=== PATIENT | male | born 1970 ===

== ENCOUNTER 2020-12-13 09:14 | Outpatient (REF) | payer OTHER, SELFPAY | END 2020-12-13 09:15 | disposition home or self-care (01) | LOC: HO.LAB 09:14 | PROVIDERS: Visit Provider Internal Medicine | DX: Z20.822 Contact with and (suspected) exposure to COVID-19 (principal) | CPT/HCPCS: 36415; C9803; U0003; U0005 ==

== ENCOUNTER 2021-01-26 08:36 | Outpatient (REF) | payer OTHER, SELFPAY | END 2021-01-26 08:37 | disposition home or self-care (01) | LOC: HO.LAB 08:36 | PROVIDERS: Visit Provider Internal Medicine | DX: Z20.822 Contact with and (suspected) exposure to COVID-19 (principal) | CPT/HCPCS: 36415; C9803; U0003; U0005 ==

== ENCOUNTER 2024-01-17 07:41 | Outpatient (REF) | payer OTHER, SELFPAY ==
[2024-01-17 11:49] LABS: MANUAL DIFF FLAG NO
[2024-01-17 11:59] LABS: Basophils Absolute Auto 0.1 X10*3/uL (0.0-0.2); Basophils Percent Auto 0.6 % (0-2); Eosinophils Absolute Auto 0.5 X10*3/uL (0.0-0.4); Eosinophils Percent Auto 5.5 % (0-4); Hematocrit 48.5 % (42.0-52.0); Hemoglobin 16.5 g/dl (14.0-18.0); Imm Gran Abs Auto 0.01 X10*3/uL (0.00-0.03); Imm Gran Pct Auto 0.1 % (0.0-0.4); Lymphocytes Absolute Auto 2.4 X10*3/uL (1.2-4.9); Lymphocytes Percent Auto 28.4 % (20-40); Mean Corpuscular Hemoglobin 32.4 pg (27.0-33.0); Mean Corpuscular Volume 95.1 fL (80.0-98.0); Mean Platelet Volume 10.6 fL (9.4-12.4); Monocytes Absolute Auto 0.9 X10*3/uL (0.1-1.2); Monocytes Percent Auto 10.9 % (2-11); Neutrophils Absolute Auto 4.5 x10*3/uL (2.0-8.3); Neutrophils Percent Auto 54.5 % (45-73); Platelet Count 285 X10*3/uL (160-400); Red Cell Distribution Width 12.3 % (11.0-16.0); White Blood Count 8.3 X10*3/uL (4.8-10.8)
[2024-01-17 12:42] LABS: Cholesterol 222 mg/dL (<200); HDL Cholesterol 39 mg/dL (>40); LDL Cholesterol Calculated 152 mg/dL (<100); Triglycerides 157 mg/dL (<150)
[2024-01-23 11:53] LABS: Testosterone, Total 322 ng/dL (250-1100)
== END 2024-01-17 07:42 | disposition home or self-care (01) ==
LOC: HO.10HDL 07:41
PROVIDERS: Visit Provider Internal Medicine Medical Oncology
DX: Z12.5 Encounter for screening for malignant neoplasm of prostate (principal); E66.9 Obesity, unspecified; N40.0 Benign prostatic hyperplasia without lower urinary tract symptoms; E55.9 Vitamin D deficiency, unspecified
CPT/HCPCS: 36415; 80061; 84153; 84403; 85025

== ENCOUNTER 2024-02-19 14:13 | Outpatient (AMB) | payer OTHER, SELFPAY ==
--- NOTE | 2024-02-19 14:42 | MHC.OFFVIS ---
Intake Vital Signs 02/19/24 14:44 Height 5 ft 5 in Weight 205 lb BMI 34.1 BP 132/78 Blood Pressure Location Rt brachial Position Sitting Pulse 65 Pulse Source Doppler Pulse Oximetry (%) 98 Oxygen Delivery Method Room Air Intake Visit Reasons: vidal Allergies No Known Allergies [No Known Allergies*] Allergy (Verified 02/19/24 14:48) HPI vidal HPI Details 53-year-old gentleman with underlying history of upper sleep apnea, previously on CPAP therapy, last sleep study in 2016. Patient states that over the last few months he was not able to use his CPAP machine at that his broken down. He is now referred for further evaluation. Patient states that when he was using his CPAP he has been getting good quality sleep. He would like to try using CPAP machine again. [facility] Social History (Updated 02/19/24 @ 14:49 by Marilynn Zaman [facility]) Tobacco use type: Cigar Review of Systems Const Denies daytime sleepiness, Denies excessive sweating, Denies fatigue, Denies fever(s), Denies lethargy, Denies malaise, Denies night sweats, Denies snoring and Denies weight loss Eyes Denies blurry vision and Denies itchy eyes ENT Denies nasal congestion, Denies post nasal drip, Denies sinus pain, Denies sinus pressure and Denies other ( Thrush) Card Denies chest pain, Denies pedal edema, Denies dyspnea, Denies orthopnea and Denies paroxysmal nocturnal dyspnea Resp Denies cough, Denies hemoptysis, Denies excessive phlegm production, Denies dyspnea, Denies snoring and Denies wheezing GI Denies abdominal pain and Denies heartburn Musc Denies myalgias, Denies arthralgias and Denies joint swelling Skin/Breast Denies rash Neuro Denies memory loss and Denies seizure-like activity Psych Denies abnormal sleep pattern, Denies anxiety and Denies memory loss Endo Denies excessive sweating, Denies fatigue and Denies heat intolerance Adonay/Lymph Denies easy bruising Aller/Immun Denies itchy eyes, Denies seasonal rhinorrhea and Denies wheezing Physical Exam Vital Signs: Last Vital Signs Pulse 65 02/19/24 14:44 BP 132/78 02/19/24 14:44 Pulse Ox 98 02/19/24 14:44 Oxygen Delivery Method Room Air 02/19/24 14:44 BMI result Body Mass Index 34.1 Const General: no acute distress and alert Nutritional Appearance: not obese Orientation/consciousness: Other orientation findings ( oriented) HEENT Head: Yes atraumatic Eyes General: appearance normal, both eyes and all related structures Sclerae: sclerae normal EOM: EOMs intact bilaterally Neck Neck: Yes supple Lymphatic: no lymphadenopathy noted Resp Effort & Inspection: normal respiratory effort and no use of accessory muscles Auscultation: clear to auscultation bilaterally Cardio Rate: regular rate Rhythm: regular rhythm Heart sounds: no gallops, no murmurs and no rubs Skin General skin exam: other ( warm) Extrem General: No clubbing, No cyanosis and No edema Assessment & Plan Assessment & Plan (1) VIDAL (obstructive sleep apnea): Code(s): G47.33 - Obstructive sleep apnea (adult) (pediatric) Plan: Underlying obstructive sleep apnea with remote sleep study over 8 years prior. Will request home sleep study. Orders: Orders RT home sleep study Today G47.33 - Obstructive sleep apnea (adult) (pediatric) Coding Level of Care Code New Pt Level 3 (09168) Diagnoses VIDAL (obstructive sleep apnea) G47.33
[2024-02-19 14:44] VITALS: BP 132/78; PULSE 65; O2SAT 98; BMI 34.1
== END 2024-02-19 15:00 | disposition home or self-care (01) ==
PROVIDERS: PCP Internal Medicine Medical Oncology; Visit Provider Internal Medicine Pulmonary Disease
DX: G47.33 Obstructive sleep apnea (adult) (pediatric) (principal)
CPT/HCPCS: 99203

== ENCOUNTER → 2024-02-19 14:13 | Outpatient (BNVA) | payer OTHER, SELFPAY | PROVIDERS: PCP Internal Medicine Medical Oncology; Visit Provider Internal Medicine Pulmonary Disease ==

== ENCOUNTER → 2024-03-24 14:12 | Outpatient (REF) | payer OTHER, SELFPAY | LOC: HO.SL 14:12 | PROVIDERS: PCP Internal Medicine Medical Oncology; Visit Provider Internal Medicine Pulmonary Disease | DX: G47.33 Obstructive sleep apnea (adult) (pediatric) (principal) | CPT/HCPCS: 95806 ==

== ENCOUNTER → 2024-03-24 14:34 | Outpatient (BNV) | payer OTHER, SELFPAY | PROVIDERS: PCP Internal Medicine Medical Oncology; Visit Provider Internal Medicine | DX: G47.33 Obstructive sleep apnea (adult) (pediatric) (principal) | CPT/HCPCS: 95806 ==

== ENCOUNTER 2024-09-18 08:20 | Day surgery (SDC) | payer OTHER, SELFPAY ==
[2024-09-16 13:52] VITALS: BMI 35.4
--- NOTE | 2024-09-17 09:18 | HO.ANESPROP2 ---
Documented by User: Milly Hook NP 09/17/24 09:18 HPI - Anesthesia Eval Consult details Narrative: 54yo M for Colonoscopy [facility] Active Problems Active Problems: All Active Problems NADYA (obstructive sleep apnea) (Acute) Past Medical History Medical History NADYA (obstructive sleep apnea) Surgical History Surgical History No pertinent past surgical history Social History Social History Patient Tobacco Use Status: Current someday Tobacco user Tobacco use type: Cigar Use of substances other than those prescribed or required for medical reasons: No Advance Directives: No Advance Directives Information Provided: Yes Meds Allergies Allergy/AdvReac Type Severity Reaction Status Date / Time No Known Allergies Allergy Verified 09/18/24 09:03 [No Known Allergies*] Home Medications ?Medication ?Instructions ?Recorded ?Confirmed ?Last Taken ?Type No Known Home Meds 09/18/24 09/18/24 Unknown History Exam Height,Weight and Vital Signs: Height 5 ft 5 in Weight 96.615 kg Assessment and Plan Assessment Anesthesia Assessment: Chart Reviewed Documented by User: Timmy Renteria MD 09/18/24 10:30 [facility] Past Medical History Medical History NADYA (obstructive sleep apnea) Family History Family history of problems with anesthesia: No Surgical History Surgical History No pertinent past surgical history History of Problems with Anesthesia: No Social History Social History Patient Tobacco Use Status: Current someday Tobacco user Tobacco use type: Cigar Use of substances other than those prescribed or required for medical reasons: No Advance Directives: No Advance Directives Information Provided: Yes Meds Allergies Allergy/AdvReac Type Severity Reaction Status Date / Time No Known Allergies Allergy Verified 09/18/24 09:03 [No Known Allergies*] Home Medications ?Medication ?Instructions ?Recorded ?Confirmed ?Last Taken ?Type No Known Home Meds 09/18/24 09/18/24 Unknown History Exam Airway Mallampati Class: III TM Dist: >3cm Neck ROM: Full Assessment and Plan Assessment Anesthesia Assessment: Anesthesia Plan Discussed Final Anesthetic Review Family History of Problems with Anesthesia: No History of Problems with Anesthesia: No NPO: Yes ASA Class: III Final Preanesthetic Review: No Changes in Pt Med Stat, Meds/Allgs Chart Reviewed, Consent Obtained/Reviewed and Anes Risks/Benef Reviewed Patient Risk: Intermediate Procedure Risk: Low Anesthetic Plan Anesthetic Plan: TIVA Disposition: Standard PACU
[2024-09-18 09:28] VITALS: BP 133/82; PULSE 56; RESP 16; TEMP 36.8; O2SAT 97
[2024-09-18] MEDS: Lactated Ringers 1,000 ML 100 ML IVCONT (09:43)
--- NOTE | 2024-09-18 11:14 | PM.OP ---
Brief Operative Note Date of Service: 09/18/24 Pre-op diagnosis: Screening Post-op diagnosis: other (Diverticulosis) Procedure: Colonoscopy to the cecum Surgeon: Douglas Maria MD Anesthesia: MAC Was an Mosaic Technician used for this Procedure?: No Estimated blood loss (mL): 0 Pathology: none sent Condition: stable Disposition: PACU
[2024-09-18 11:15] VITALS: BP 101/71; PULSE 75; RESP 18; TEMP 36.2; O2SAT 96
[2024-09-18 11:30] VITALS: BP 126/80; PULSE 58; RESP 18; TEMP 36.1; O2SAT 97
--- NOTE | 2024-09-18 22:43 | OP_ITS ---
DATE OF SERVICE: 09/18/2024 SURGEON: Douglas Maria MD INDICATIONS: The patient presents for evaluation of colorectal cancer screening. Full consent was obtained from him for this, including risks of bleeding and perforation. PREOPERATIVE DIAGNOSIS: Colorectal cancer screening. POSTOPERATIVE DIAGNOSIS: PROCEDURE PERFORMED: Colonoscopy to the cecum. ESTIMATED BLOOD LOSS: COMPLICATIONS: ANESTHESIA: Medication used; monitored anesthesia care. ASSISTANTS: SPECIMENS: POSTOPERATIVE DIAGNOSES: Colorectal cancer screening, occasional diverticulosis, and internal hemorrhoids. DESCRIPTION OF PROCEDURE: The patient was placed in left lateral decubitus position. The digital rectal exam revealed no abnormalities. The Olympus videopediatric colonoscope was entered into the rectum and advanced easily to the cecum. Once in the cecum, I did identify normal-appearing cecal pouch with appendiceal orifice and a normal-appearing ileocecal valve. The entire cecum and ileocecal valve appeared normal. There was transillumination of light deep in the right lower quadrant. The scope was slowly withdrawn assessing all mucosal surfaces carefully. Preparation was excellent. I did not visualize any sign of polyps, colitis, nor angiodysplasia. There were occasional diverticula in the sigmoid colon. In the rectum, scope was retroflexed visualizing small internal hemorrhoids, but no other pathology. The rectal mucosa appeared normal. Scope was straightened and withdrawn from the patient. He tolerated the procedure well and was returned to recovery area in stable condition. IMPRESSION: 1. Occasional sigmoid diverticulosis. 2. Small internal hemorrhoids. PLAN: Given the negative exam and negative family history of colon cancer, I would recommend a followup coloscopy in 10 years for further screening. He will otherwise see me on a p.r.n. basis. Douglas Maria MD RMW/[place] / [phone]
== END 2024-09-18 11:46 | disposition home or self-care (01) ==
PROVIDERS: PCP Internal Medicine Medical Oncology; Visit Provider Internal Medicine
PROC: 0DJD8ZZ Inspection of Lower Intestinal Tract, Via Natural or Artificial Opening Endoscopic (ICD-10-PCS; CPT 45378; principal; 2024-09-18 09:40)
DX: Z12.11 Encounter for screening for malignant neoplasm of colon (principal); K57.30 Diverticulosis of large intestine without perforation or abscess without bleeding; K64.8 Other hemorrhoids; Z87.891 Personal history of nicotine dependence
CPT/HCPCS: 45378; J2003; J2704

== ENCOUNTER 2025-01-05 06:09 | Outpatient (REF) | payer OTHER, SELFPAY ==
--- OUTSIDE RECORDS SUMMARY | 2025-01-05 06:13 | XMS_ITS ---
Author Organization [facility] Address [address] [place] [address] Care Team Providers Care Information Coordinator Name Role Phone Douglas Bermudez MD Primary Care Provider UnavailDouglas Johnson Unavailable [phone] ALLERGIES No Known Allergies REASON FOR VISIT Patient presents today for a colon screening MEDICATIONS Medication SIG (Take, Route, Frequency, Duration) Notes Start Date End Date Status Vitamin B 12 Active SOCIAL HISTORY Tobacco Use: Social History Observation Description Date Details (start date - stop date) Former Smoker NA - NA Sex Assigned At : Social History Observation Description Sex Assigned At Unknown Tobacco Use/Smoking Question Answer Notes Patient is a former smoker How long has it been since you last smoked? > 10 years Alcohol Screen Question Answer Notes Did you have a drink contain ing alcohol in the past year? Yes How often did you have a dri nk containing alcohol in the past year? Monthly or less (1 point) How many drinks did you have on a typical day when you were drinking in the past year? 1 or 2 drinks (0 point) How often did you have 6 or more drinks on one occasion in the past year? Never (0 point) Points 1 Interpretation Negative PROBLEMS Problem Type ICD Code Onset Dates Problem Status W/U Status Risk SNOMED Code Notes Problem Colon cancer screening (Z12.11) Active confirmed Colon cancer screening (401890128) Problem Encounter for other preprocedural examination (Z01.818) Active confirmed Pre-procedure evaluation check (518159709) VITAL SIGNS Blood pressure systolic 00 mm Hg 05/19/20 24 Blood pressure diastolic 00 mm Hg 024 Height 5 ft 5 in in 05/19/2024 Weight 213 lbs 05/19/2024 BMI 35.44 kg/m2 05/19/2024 Encounters Encounter Location Date Provider Diagnosis [facility] [address] [place] [address] 05/19/2024 Douglas Maria Colon cancer screeni ng Z12.11 and Encounter for other preprocedural examination Z01.818 ASSESSMENTS Encounter Date Diagnosis Assessment Notes Treatment Notes Treatment Clinical Notes 05/19/2024 Colon cancer screening (ICD-10 - Z12.11) 05/19/2024 Encounter for other preprocedural examination (ICD-10 - Z01.818) PLAN OF TREATMENT Future Test Test Name Order Date COLONOSCOPY 05/19/2024 Next Appt Details Follow Up: prn, Reason: Progress Notes * Examination Category Sub-Category Detail Notes General Examination GENERAL APPEARANCE: pleasant , well nourished, well developed, in no acute distress HEAD: EYES: sclera non-icteric EARS: NOSE: THROAT: NECK/THYROID: no cervical lymphade nopathy, neck supple HEART: S1, S2 normal CHEST: LUNGS: clear to auscultatio n bilaterally ABDOMEN: normal bowel sounds, no guarding or rigidity, no guarding or rigidity, no masses palpable, soft, nontender, nondistended NEUROLOGIC: alert and oriented SKIN: nonjaundiced, no spi any angiomata EXTREMITIES: no edema PERIPHERAL PULSES: BACK: BREASTS: MUSCULOSKELETAL: MALE GENITOURINARY: LYMPH NODES: RECTAL EXAM: FEMALE GENITOURINARY: ORAL CAVITY: mucosa moist
--- OUTSIDE RECORDS SUMMARY | 2025-01-05 06:14 | XMS_ITS ---
Author Organization [facility] Address [address] [place] [address] Care Team Providers Care Sheet Heater Helper Name Role Phone Douglas Bermudez MD Primary Care Provider Unavailab Douglas Robert Unavailable [phone] REASON FOR VISIT screening PROBLEMS Problem Type ICD Code Onset Dates Problem Status W/U Status Risk SNOMED Code Notes Problem Diverticulosis of large intestine without perforation or abscess without bleeding (K57.30) Active confirmed Diverticul ar disease of colon (260399744) Encounters Encounter Location Date Provider Diagnosis [facility] [place] [facility] [address] [place], [place] [id number] 09/18/2024 Douglas Maria Colon cancer scree srinivas Z12.11 ; Diverticulosis of large intestine without perforation or abscess without bleeding K57.30 and Other hemorrhoids K64.8 ASSESSMENTS Encounter Date Diagnosis Assessment Notes Treatment Notes Treatment Clinical Notes 09/18/2024 Colon cancer screening (ICD-10 - Z12.11) 09/18/2024 Diverticulosis of large intestine without perforation or abscess without bleeding (ICD-10 - K57.30) 09/18/2024 Other hemorrhoids (ICD-10 - K64.8) PLAN OF TREATMENT No Information
--- OUTSIDE RECORDS SUMMARY | 2025-01-05 06:14 | XMS_ITS | Patient Health Record ---
Author Organization Dogulas Bermudez III, MD Address [address] [place] [address] Care Team Providers Care Supervisor Name Role Phone Douglas Bermudez Primary Care Provider [phone] Allergies Allergen (clinical drug ingredient) Drug/Non Drug Allergy documented on EMR Reaction Allergy Type Onset Date Status No Known Drug Allergy Unknown Drug Allergy Active Results Component Value Reference Range Notes Lipid Panel Reviewed date:01/29/2024 03:39:08 PM Interpretation: Performing Lab:[facility], [address] [place] [phone] Notes/Report: Triglycerides 157 <150 mg/dL Desirable Triglyceride: less than 150 mg/dL Borderline High Triglyceride 150-199 mg/dL High Triglyceride: 200-499 mg/dL Very High Triglyceride: greater than or equal to 5OO mg/dL Cholesterol 222 <200 mg/dL Desirable Cholesterol: less than 200 mg/dL Borderline High Cholesterol: 200-239 mg/dL High Cholesterol: greater than 239 mg/dL LDL Cholesterol Calculated 152 <100 mg/dL Desirable LDL: less than 100 mg/dL Near Optimal/Above Optimal LDL: 110-129 mg/dL Borderline High LDL: 130-159 mg/dL High LDL: 160-189 mg/dL Very High LDL: greater than or equal to 190 mg/dL HDL Cholesterol 39 >40 mg/dL Desirable HDL: greater than 40 mg/dL Note: This HDL assay may give artificially low results in patients with liver disease. Testosterone, Total Reviewed date:01/29/2024 03:39:08 PM Interpretation: Performing Lab:[facility], [address] [place] [phone] Notes/Report: Testosterone, Total 965 215-6301 ng/dL For additional information, please refer to http://education.[employer].Appticles/faq/ [email or web address] (This link is being provided for informational/ educational purposes only.) This test was developed and its analytical performance characteristics have been determined by [employer] [place], [place]. It has not been cleared or approved by the U.S. Food and Drug Administration. This assay has been validated pursuant to the CLIA regulations and is used for clinical purposes. THIS TEST WAS PERFORMED AT: [employer]/[address] MOHIT FRANKLIN MD,PHD Complete Blood Count Auto Di ff Reviewed date:01/29/2024 03:39:08 PM Interpretation: Performing Lab:[facility], [address] [place] [phone] Notes/Report: White Blood Count 8.3 4.8-10.8 X10*3/uL Red Blood Count 5.10 4.60-5.80 X10*6/uL Hemoglobin 16.5 14.0-18.0 g/dl Hematocrit 48.5 42.0-52.0 % Mean Corpuscular Volume 95.1 80.0-98.0 fL Mean Corpuscular Hemoglobin 32.4 27.0-33.0 pg Mean Corpuscular HGB Conc 34.0 31.0-36.0 g/dl Red Cell Distribution Width 12.3 11.0-16.0 % Platelet Count 285 160-400 X10*3/uL Mean Platelet Volume 10.6 9.4-12.4 fL Neutrophils Percent Auto 54.5 45-73 % Imm Gran Pct Auto 0.1 0.0-0.4 % Lymphocytes Percent Auto 28.4 20-40 % Monocytes Percent Auto 10.9 2-11 % Eosinophils Percent Auto 5.5 0-4 % Basophils Percent Auto 0.6 0-2 % NRBC Pct Auto 0.0 0.0-0.2 /100WBC Neutrophils Absolute Auto 4.5 2.0-8.3 x10*3/u L Imm Gran Abs Auto 0.01 0.00-0.03 X10*3/uL Lymphocytes Absolute Auto 2.4 1.2-4.9 X10*3/u L Monocytes Absolute Auto 0.9 0.1-1.2 X10*3/uL Eosinophils Absolute Auto 0.5 0.0-0.4 X10*3/u L Basophils Absolute Auto 0.1 0.0-0.2 X10*3/uL NRBC Abs Auto 0.000 0.0-0.012 X10*3/uL Prostate Specific Antigen Reviewed date:01/29/2024 03:39:08 PM Interpretation: Performing Lab:[facility], [address] [place] [phone] Notes/Report: Prostate Specific Antigen 1.90 <0.05-4.0 ng/mL PSA methodology: Mims Alinity i Chemiluminescent Microparticle Immunoassay (CMIA) Reason For Referral Reason Consult and Treat Screen for colon cancer Diagnosis 1 Screen for colon can cer (Z12.11) Referral Organization Douglas Bermudez III, MD Referring Provider First Name Douglas Referring Provider Last Name Lara Referring Provider Speciality Internal edicine Referred Provider Douglas Maria Referred Provider Specialty Gastroentero logy General Notes Ellen Kumar 2023 10:57:15 AM EDT > Faxed referral and progress notesStacy Amber 05/20/2024 01:51:42 PM EDT > Patient is having colonoscopy on 09/18 @ 8:40am Referral Priority Routine Referral Appointment Date 05/19/2024 Reason Consult and Treat Diagnosis 1 Sleep apnea (G47.30) Referral Organization Douglas Bermudez III, MD Referring Provider First Name Douglas Referring Provider Last Name Lara Referring Provider Speciality Internal edicine Referred Provider Jennifer Michele Referred Provider Specialty Sleep Medici ne General Notes Ellen Kumar 2023 10:57:46 AM EDT > Faxed with progress note and referralStacy Amber 01/28/2024 02:02:18 PM > Spoke with Frank from front desk host she stated she is going to work on patients referral and will be calling him to schedule appointment., Ellen Kumar 03/10/2024 04:31:28 PM EDT > Patient was seen by Dr. Koo will not need to go to Dr. Michele. Referral Priority Routine Reason sleep apnea evaluate and treat needs new CPAP machine Diagnosis 1 Sleep apnea (G47.30) Referral Organization Douglas Bermudez III, MD Referring Provider First Name Douglas Referring Provider Last Name Lara Referring Provider Speciality Internal M edicine Referred Provider MANDY KOO Referred Provider Specialty Pulmonary Di seases General Notes Samara Singhe [facility] 01/10 03:57:42 PM EDT > Patient unable to get appt with Dr Michele until June . patient needs to be seen within a month if possible. Thanks , Haydee Singh [facility] 01/30/2024 09:31:17 AM EDT > ref/demo/progress note faxed to Dr Landon office pt aware of this and they will contact pt with appt amado , FranciscoHaydee [facility] 02/18/2024 01:31:51 PM EDT > Called Dr Landon office pt has appt with Dr Ramirez on 02/19/2024 2:45pm Referral Priority Routine Referral Appointment Date 02/19/2024 Social History Tobacco Use: Social History Observation Description Date Details (start date - stop date) Former Smoker NA - NA Sex Assigned At : Social History Observation Description Sex Assigned At Male Tobacco Use/Smoking Question Answer Notes Patient is a former smoker How long has it been since you last smoked? > 10 years Additional Findings: Tobacco Non-User Ex-cigaret te smoker Alcohol Screen Question Answer Notes Did you have a drink contain ing alcohol in the past year? Yes How often did you have a dri nk containing alcohol in the past year? 2 to 3 times a week (3 points) How many drinks did you have on a typical day when you were drinking in the past year? 1 or 2 drinks (0 point) How often did you have 6 or more drinks on one occasion in the past year? Never (0 point) Points 3 Interpretation Negative Problems Problem Type SNOMED Code ICD Code Onset Dates Problem Status W/U Status Risk Notes Problem 1487562 Former smoker (Z87.891) Active confirmed He is highly motivated not to smooke. He has a plan in place to prevent relapse. Problem Obesity (131834403) Obesity (E66.9) Active confirmed His weight is stable at 217 with a body mass index of 36. We discussed his weight loss strategy and diet and nutrition. We discussed alternatives for treatment of obesity. We made a plan to lose weight at a rate of one half of a pound per week through a diet restricted in fat calories and sodium combined with regular physical activity. Problem Benign prostatic hypertrophy without outflow obstruction (799225078) BPH (benign prostatic hypertrophy) (N40.0) Active confirmed He rises from sleep on the average once a night. We have discussed lifestyle modifications he could make to reduce this nocturia. Problem Erectile dysfunction (467385680) Erectile dysfunction (N52.9) Active confirmed This is an intermittent problem and he did not wish medication at this time. We discussed the use of medication. He is going to contact the office he wishes a prescription. Problem Sleep apnea (35793578) Sleep apnea (G47.30) Active confirmed He says he has a new CPAP machine and is using it. Vital Signs Heart Rate 68 /min 09/11/2024 Temperature 98.0 degrees Fahrenheit 09/11/2024 Blood pressure diastolic 80 mm Hg 09/11/2024 Height 65 in 09/11/2024 Blood pressure systolic 139 mm Hg 09/11/2024 Weight 217 lbs 09/11/2024 BMI 36.11 kg/m2 09/11/2024 Encounters Encounter Location Date Provider Diagnosis Douglas Bermudez III, MD [address] [place] [address] [place] [phone] 01/15/2024 Douglas Bermudez Sleep apnea G47.30 ; Obesity E66.9 ; Erectile dysfunction N52.9 and BPH (benign prostatic hypertrophy) N40.0 Douglas Bermudez III, MD [address] [place] [address] [place] [id number] 05/01/2024 Douglas Bermudez Sleep apnea G47.30 ; Obesity E66.9 ; Erectile dysfunction N52.9 ; BPH (benign prostatic hypertrophy) N40.0 and Former smoker Z87.891 Douglas Bermudez III, MD [address] [place] [address] [place] [phone] 09/11/2024 Douglas Bermudez Obesity E66.9 ; Slee p apnea G47.30 ; BPH (benign prostatic hypertrophy) N40.0 ; Erectile dysfunction N52.9 and Former smoker Z87.891 Douglas Bermudez III, MD [address] [place] [address] [place] [phone] 01/29/2024 Douglas Bermudez Obesity E66.9 ; BPH (benign prostatic hypertrophy) N40.0 ; Erectile dysfunction N52.9 and Sleep apnea G47.30 Douglas Bermudez III, MD [address] [place] [address] [place] [address] 06/12/2024 Douglas Bermudez Sleep apnea G47.30 ; Obesity E66.9 ; BPH (benign prostatic hypertrophy) N40.0 ; Former smoker Z87.891 and Erectile dysfunction N52.9 Douglas Bermudez III, MD [address] [place] [address] [place] [address] 01/06/2024 Douglas Bermudez III, MD [address] [place] [address] [place] [address] 01/09/2024 Douglas Bermudez III, MD [address] [place] [address] [place] [address] 02/07/2024 Douglas Bermudez III, MD [address] [place] [address] [place] [address] 05/11/2024 Douglas Bermudez III, MD [address] [place] [address] [place] [address] 12/31/2024 Douglas Bermudez Assessments Encounter Date Diagnosis (ICD Code) Assessment Notes Treatment Notes Treatment Clinical Notes 01/15/2024 Obesity (ICD-10 - E66.9) We have discussed his diet and nutrition. We are reviewed the health consequences of obesity. We have investigated any barriers. We made a suggestion that he lose weight at a rate of 1/2 pound per week for regular physical activity and a diet restricted in fat calories and sodium. 01/15/2024 Sleep apnea (ICD-10 - G47.30) He will continue to use his CPAP. He will determine the setting and reported to us. He will report any daytime somnolence. 05/01/2024 Obesity (ICD-10 - E66.9) We have discussed his diet and nutrition. We are reviewed the health consequences of obesity. We have investigated any barriers. We made a suggestion that he lose weight at a rate of 1/2 pound per week for regular physical activity and a diet restricted in fat calories and sodium. 05/01/2024 Sleep apnea (ICD-10 - G47.30) My office will look into thiis and see if we can help him obtain a functioning CPAP machine. 09/11/2024 Obesity (ICD-10 - E66.9) His weight is stable at 217 with a body mass index of 36. We discussed his weight loss strategy and diet and nutrition. We discussed alternatives for treatment of obesity. We made a plan to lose weight at a rate of one half of a pound per week through a diet restricted in fat calories and sodium combined with regular physical activity. 09/11/2024 Sleep apnea (ICD-10 - G47.30) He says he has a new CPAP machine and is using it. 01/29/2024 Obesity (ICD-10 - E66.9) We have discussed his diet and nutrition. We are reviewed the health consequences of obesity. We have investigated any barriers. We made a suggestion that he lose weight at a rate of 1/2 pound per week for regular physical activity and a diet restricted in fat calories and sodium. 01/29/2024 BPH (benign prostatic hypertrophy) (ICD-10 - N40.0) He rises from sleep once or twice a night to urinate. We have discussed lifestyle modification as a way to reduce nocturia. If necessary he will be seen by urology. 06/12/2024 Obesity (ICD-10 - E66.9) We have discussed his diet and nutrition. We are reviewed the health consequences of obesity. We have investigated any barriers. We made a suggestion that he lose weight at a rate of 1/2 pound per week for regular physical activity and a diet restricted in fat calories and sodium. 06/12/2024 Sleep apnea (ICD-10 - G47.30) He says he has a new CPAP machine and is using it. 01/15/2024 Erectile dysfunction (ICD-10 - N52.9) He was given a course of medication for this problem with a follow-up visit. 05/01/2024 Erectile dysfunction (ICD-10 - N52.9) He was given a course of medication for this problem with a follow-up visit. 09/11/2024 BPH (benign prostatic hypertrophy) (ICD-10 - N40.0) He rises from sleep on the average once a night. We have discussed lifestyle modifications he could make to reduce this nocturia. 01/29/2024 Erectile dysfunction (ICD-10 - N52.9) He was given a course of medication for this problem with a follow-up visit. 06/12/2024 BPH (benign prostatic hypertrophy) (ICD-10 - N40.0) He rises from sleep once or twice a night to urinate. We have discussed lifestyle modification as a way to reduce nocturia. If necessary he will be seen by urology. 01/15/2024 BPH (benign prostatic hypertrophy) (ICD-10 - N40.0) He rises from sleep once or twice a night to urinate. We have discussed lifestyle modification as a way to reduce nocturia. If necessary he will be seen by urology. 05/01/2024 BPH (benign prostatic hypertrophy) (ICD-10 - N40.0) He rises from sleep once or twice a night to urinate. We have discussed lifestyle modification as a way to reduce nocturia. If necessary he will be seen by urology. 09/11/2024 Erectile dysfunction (ICD-10 - N52.9) This is an intermittent problem and he did not wish medication at this time. We discussed the use of medication. He is going to contact the office he wishes a prescription. 01/29/2024 Sleep apnea (ICD-10 - G47.30) He will continue to use his CPAP. He will determine the setting and reported to us. He will report any daytime somnolence. 06/12/2024 Former smoker (ICD-10 - Z87.891) He is highly motivated not to smooke. He has a plan in place to prevent relapse. 05/01/2024 Former smoker (ICD-10 - Z87.891) He is highly motivated not to smooke. He has a plan in place to prevent relapse. 09/11/2024 Former smoker (ICD-10 - Z87.891) He is highly motivated not to smooke. He has a plan in place to prevent relapse. 06/12/2024 Erectile dysfunction (ICD-10 - N52.9) He was given a course of medication for this problem with a follow-up visit. Plan Of Treatment Pending Test Test Name Order Date PROFILE, FASTING (COMPREHENSIVE METABOLI C) 01/15/2024 PROFILE, FASTING (COMPREHENSIVE METABOLI C) 09/11/2024 PSA, TOTAL 01/15/2024 CBC WITH AUTO DIFF 09/11/2024 CBC WITH AUTO DIFF 01/15/2024 Lipid Panel 09/11/2024 Testosterone, Total 09/11/2024 Next Appt Details Provider Name:Douglas Bermudez, 01/15/2025 04:00:00 PM, [address] [place] [address] [address], [address], [place], [address], Insurance Providers Payer Name Payer Address Payer Phone Subscriber Number Group Number Insured Name Patient Relationship to Insured Coverage Start Date Coverage End Date [facility] [address] [facility] [address] [facility] [place] [phone] [id number] Yogesh Bosch Self - patient is the insured Medical (General) History Medical History History ICD Code Sleep apnea, unspecified G47.30 Obesity Former smoker Surgical History Surgery Date(Month/Year) No history Hospitalization History Reason Date(Month/Year) No history
--- OUTSIDE RECORDS SUMMARY | 2025-01-05 06:14 | XMS_ITS ---
Author Organization Douglas Bermudez III, MD Address [address] [place] [address] [place] [address] Care Team Providers Care Child And Adolescent Therapist Name Role Phone Douglas Bermudez Primary Care Provider [phone] REASON FOR VISIT Getting blood work done Social History Sex Assigned At : Social History Observation Description Sex Assigned At Male Encounters Encounter Location Date Provider Diagnosis Douglas Bermudez III, MD [address] [place] [address] [place] [address] 12/31/2024 Douglas Bermudez Plan Of Treatment Next Appt Details Provider Name:Douglas Bermudez, 01/15/2025 04:00:00 PM, [address] [place] [address] [place], [address], Progress Notes * Yogesh ENCINAS ADOB:1970 (54 yo M)Acc No.[id number]:12/31/2024 Patient:?Yogesh ENCINAS :1970???Age:54 Y???Sex:Male Address:[address] [place] [address], [id number] * true * Date:? Generated for Chuck medina/Bri/eTransmitting on:?01/05/2025 06:14 AM EST
--- OUTSIDE RECORDS SUMMARY | 2025-01-05 06:14 | XMS_ITS ---
Author Organization Douglas Bermudez III, MD Address [address] [place] [address] [place] [address] Care Team Providers Care Plastic Surgery Assistant Name Role Phone Douglas Bermudez Primary Care Provider REASON FOR VISIT Folllow Up Social History Sex Assigned At : Social History Observation Description Sex Assigned At Male Encounters Encounter Location Date Provider Diagnosis Douglas Bermudez III, MD [address] [place] [address] [place] [address] 08/14/2024 Douglas Bermudez Plan Of Treatment Next Appt Details Provider Name:Douglas Bermudez, 01/15/2025 04:00:00 PM, [address] [place] [address] [place], [address], Progress Notes * Yogesh ENCINAS ADOB:1970 (54 yo M)Acc No.[id number]:08/14/2024 Progress Notes Patient:?Yogesh ENCINAS Provider:?Douglas Bermudez MD :1970???Age:54 Y???Sex:Male Kehinde e:08/14/2024 Address:[address] [place], [place] [id number] Subjective: * Chief Complaints: * ???1. Folllow Up. * Medical History:? Objective: * Vitals:? Assessment: Plan: * Treatment: * Images: * The named appointment provid er may or may not be the originator of this progress note, and it is not deemed complete until electronically signed by the appointment provider. Sign off status: Pending * Provider:?Douglas Bermudez MD Date:?02/2024 Generated for Chuck medina/Bri/Khurram on:?01/05/2025 06:13 AM EST
--- OUTSIDE RECORDS SUMMARY | 2025-01-05 06:14 | XMS_ITS ---
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 Name Role Phone Douglas Bermudez Primary Care Provider Allergies Allergen (clinical drug ingredient) Drug/Non Drug Allergy documented on EMR Reaction Allergy Type Onset Date Status No Known Drug Allergy Unknown Drug Allergy Active REASON FOR VISIT Sleep apnea, Obesity, Benign prostatic hypertrophy Social History Tobacco Use: Social History Observation Description Date Details (start date - stop date) Former Smoker NA - NA Sex Assigned At : Social History Observation Description Sex Assigned At Male Tobacco Use/Smoking Question Answer Notes Patient is a former smoker How long has it been since you last smoked? > 10 years Additional Findings: Tobacco Non-User Ex-cigaret te smoker Vital Signs Temperature 98.0 degrees Fahrenheit 09/11/20 24 Blood pressure systolic 139 mm Hg 09/11/20 24 Blood pressure diastolic 80 mm Hg 024 Heart Rate 68 /min 09/11/2024 Height 65 in 09/11/2024 Weight 217 lbs 09/11/2024 BMI 36.11 kg/m2 09/11/2024 Encounters Encounter Location Date Provider Diagnosis Douglas Bermudez III, MD [address] [place] [address] [place] [id number] 09/11/2024 Douglas Bermudez Obesity E66.9 ; Slee p apnea G47.30 ; BPH (benign prostatic hypertrophy) N40.0 ; Erectile dysfunction N52.9 and Former smoker Z87.891 Assessments Encounter Date Diagnosis (ICD Code) Assessment Notes Treatment Notes Treatment Clinical Notes 09/11/2024 Obesity (ICD-10 - E66.9) His weight [...] new CPAP machine and is using it. 09/11/2024 BPH (benign prostatic hypertrophy) (ICD-10 - N40.0) He rises from sleep on the average once a night. We have discussed lifestyle modifications he could make to reduce this nocturia. 09/11/2024 Erectile dysfunction (ICD-10 - N52.9) This is an intermittent problem and he did not wish medication at this time. We discussed the use of medication. He is going to contact the office he wishes a prescription. 09/11/2024 Former smoker (ICD-10 - Z87.891) He is highly motivated not to smooke. He has a plan in place to prevent relapse. Plan Of Treatment Pending Test Test Name Order Date PROFILE, FASTING (COMPREHENSIVE METABOLI C) 09/11/2024 CBC WITH AUTO DIFF 09/11/2024 Lipid Panel 09/11/2024 Testosterone, Total 09/11/2024 Next Appt Details Follow Up: As Scheduled, Lilian , Reason: OV, Annual Exam, Routine check-up and blood work Provider Name:Douglas Bermudez, 01/15/2025 04:00:00 PM, [address] [place] [address] , [place] [address], [place], [id number], Progress Notes * ENCINASMarcel Renaeon ADOB:1970 (54 yo M)Acc No.[id number]:09/11/2024 Progress Notes Patient:?Yogesh ENCINAS A Provider:?Douglas Bermudez MD :1970???Age:54 Y???Sex:Male Kehinde e:09/11/2024 Address:[address] [place] [address] , [id number] Subjective: * Chief Complaints: * ???Sleep apneaObesityBenign prostatic hypertrophy * HPI: ???COVID-19 Screening:?Questions?Have you experienced fever, chills, cough, sore throat, shortness of breath, difficulty breathing, muscle aches, loss of taste or smell??No ?Have you been exposed to the virus within the last 10 days??No ?Have you travelled internationally in the last 10 days??No ?Have you been exposed to COVID-19 in the past??Yes ???:? The patient, a 54-year-old male, came in for a routine check-up. He has been generally healthy and has not had any recent blood tests. The patient mentioned that he has been feeling tired lately, which he attributes to aging. He also expressed concerns about changes in his sexual health, specifically not waking up with an erection as he used to. The patient is scheduled for a colonoscopy next Saturday. He has been referred to a specialist for this procedure. The patient also mentioned a recent bug bite. * ROS:?General/Constitutional:?pain?only normal aches and pains.?Chills?denies.?Fatigue?admits.?Fever?denies.?ENT:?Decreased hearing?denies.?Respiratory:?Cough?denies.?Cardiovascular:?Chest pain with exertion?denies.?Dyspnea on exertion?denies.?Shortness of breath?denies.?Gastrointestinal:?Constipation?occasional.?Decreased appetite?denies.?Diarrhea?denies.?Heartburn?denies.?Nausea?denies.?Rectal bleeding?denies.?Vomiting?denies.?Hematology:?bruising?denies.?petechiae?denies.?Swollen glands?none have been noted.?Genitourinary:?Frequent urination?once a night.?Musculoskeletal:?Muscle aches?denies.?Painful joints?denies.?Sciatica?denies.?Weakness?denies.?Skin:?Itching?denies.?Rash?denies.?Skin lesion(s)?denies.?Neurologic:?Difficulty speaking?denies.?Dizziness?denies.?Headache?denies.?Low back pain?denies.?Psychiatric:?Depressed mood?denies.? * Medical History:? * Surgical History:?No history * Hospitalization/Major Diagno stic Procedure:?No history * Family History:?Father: dece ased 51 yrs.?Mother: alive 68 yrs.?Children: alive.?Son(s): alive.?Daughter(s): alive.?Siblings: alive.?Paternal Grand Father: .?Paternal Grand Mother: .?Maternal Grand Father: .?Maternal Grand Mother: alive, kidney failure.?2 brother(s) , 2 sister(s) . 1 son(s) , 1 daughter(s) - healthy. .? His mother is alive and well with arthritis. She has had a knee replacement. His father at the age of 51 in a bicycle accident.He has 4 children from different families. He has 1 grandchild. There is no family history of cancer syndromes. There is no family history of mental illness and addiction or substance use disorder. * Social History:?Tobacco Use:?Tobacco Use/Smoking?Patient is a?former smoker ?How long has it been since you last smoked??> 10 years ?Additional Findings: Tobacco Non-User?Ex-cigarette smoker ???He is a former smoker. He lives in [facility]. He is with 4 children. 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 He has no jainism objection to blood transfusion. * Medications:?None * Allergies:?No Known Drug All ergyno[Allergies Verified] Objective: * Vitals:?Ht: 65, Wt: 217, BMI :36.11, BP: 139/80, HR: 68, Temp: 98.0, Ht-cm: 165.1, Wt-k.43. * Examination: ???General Examination: ?GENERAL APPEARANCE:?pleasant, well nourished, well developed, in no acute distress, calm and relaxed, obese, man.?HEAD:?atraumatic, normocephalic.?EYES:?eomi, perrla, anicteric, conjugate.?EARS:?normal.?NOSE:?septum intact.?ORAL CAVITY:?normal, unremarkable.?NECK/THYROID:?no jugular venous distention, no carotid bruit, thyroid normal.?LYMPH NODES:?no enlarged lymph nodes,spleen normal.?SKIN:?no suspicious lesions, anicteric.?HEART:?no clicks, gallops, murmurs, or rubs, regular rhythm, S1, S2 normal, no s3, or vascular bruits.?LUNGS:?clear to auscultation .?BREASTS:??no masses palpable bilaterally.?ABDOMEN:?bowel sounds normal, no ascites, no organomegaly, no mass, centripital obesity.?RECTAL EXAM:?not examined.?MUSCULOSKELETAL:?extremities unremarkable, no clubbing, cyanosis or edema.?PERIPHERAL PULSES:?normal.?NEUROLOGIC:?alert and oriented, cranial nerves 2-12 grossly intact, deep tendon reflexes 2+ symmetrical, motor strength normal upper and lower extremities, sensory exam intact.?PSYCH:?alert, oriented.? Assessment: * Assessment: 1.?Sleep apnea - G47.30 (Marnie andino)???Notes :He says he has a new CPAP machine and is using it.???2.?Obesity - E66.9???Notes :His weight is stable at 217 with a body mass index of 36.? We discussed his weight loss strategy and diet and nutrition.? We discussed alternatives for treatment of obesity.? We made a plan to lose weight at a rate of one half of a pound per week through a diet restricted in fat calories and sodium combined with regular physical activity.???3.?BPH (benign prostatic hypertrophy) - N40.0???Notes :He rises from sleep on the average once a night.? We have discussed lifestyle modifications he could make to reduce this nocturia.???4.?Erectile dysfunction - N52.9???Notes :This is an intermittent problem and he did not wish medication at this time.? We discussed the use of medication.? He is going to contact the office he wishes a prescription.???5.?Former smoker - Z87.891???Notes :He is highly motivated not to smooke. He has a plan in place to prevent relapse.??? Plan: * Treatment: 2.?BPH (benign prostatic hyp ertrophy)?LAB: PROFILE, FASTING (COMPREHENSIVE METABOLIC) ?LAB: CBC WITH AUTO DIFF ?LAB: Lipid Panel ?LAB: Testosterone, Total 3.?Erectile dysfunction?LAB: PROFILE, FASTING (COMPREHENSIVE METABOLIC) ?LAB: CBC WITH AUTO DIFF ?LAB: Lipid Panel ?LAB: Testosterone, Total * Procedure Codes:? * Preventive Medicine:? ??Counseling:?Care goal follow-up plan:?Counseling for abnormal BMI given?Yes ?Above Normal BMI Follow-up?Dietary management education, guidance, and counseling, Dietary needs education, Exercise promotion: strength training, Exercise promotion: stretching, Feeding regime, Giving encouragement to exercise, Lifestyle education regarding diet, Nutrition / feeding management, Nutrition therapy, Prescribed activity/exercise education, Prescribed diet education, Prescribed dietary intake, Special diet education, Weight monitoring , Intervention, Order not done: Medical or Other reason not done ?Smoking/Tobacco Use?Patient counseled on the dangers of tobacco use and urged to quit.?09/11/2024 * Follow Up:?As Scheduled, Lilian moinque (Reason: OV, Annual Exam, Routine check-up and blood work) * Images: * Sign off status: Completed true * Provider:?Douglas Bermudez MD Date:?11/2023 Generated for Printi ng/Bri/eTransmitting on:?01/05/2025 06:14 AM EST History and Physical Notes * HPI (History of Present Illness) Category Sub-Category Detail Notes COVID-19 Screening Questions Have you had any new onset fever, chills, cough, congestion, sore throat, shortness of breath, muscle aches?: No Have you been exposed to the virus withi n the last 10 days?: No Have you travelled internationally in e last 10 days?: No Have you been exposed to COVID-19 in the past?: Yes Examination Category Sub-Category Detail Notes General Examination GENERAL APPEARANCE: pleasant , well nourished, well developed, in no acute distress, calm and relaxed, obese, man HEAD: atraumatic, normocep halic EYES: eomi, perrla, anicte bryce, conjugate EARS: normal NOSE: septum intact NECK/THYROID: no jugular venous di stention, no carotid bruit, thyroid normal HEART: no clicks, gallops, murmurs, or rubs, regular rhythm, S1, S2 normal, no s3, or vascular bruits LUNGS: clear to auscultatio n ABDOMEN: bowel sounds normal, no ascites, no organomegaly, no mass, centripital obesity NEUROLOGIC: alert and oriented, cranial nerves 2-12 grossly intact, deep tendon reflexes 2+ symmetrical, motor strength normal upper and lower extremities, sensory exam intact SKIN: no suspicious lesion s, anicteric PERIPHERAL PULSES: normal BREASTS: no masses palpable b ilaterally MUSCULOSKELETAL: extremities unremark able, no clubbing, cyanosis or edema LYMPH NODES: no enlarged lymph no babak,spleen normal RECTAL EXAM: not examined PSYCH: alert, oriented ORAL CAVITY: normal, unremarkable
[2025-01-05 06:23] LABS: MANUAL DIFF FLAG NO
[2025-01-05 07:30] LABS: Basophils Absolute Auto 0.1 X10*3/uL (0.0-0.2); Basophils Percent Auto 0.7 % (0-2); Eosinophils Absolute Auto 0.4 X10*3/uL (0.0-0.4); Eosinophils Percent Auto 5.5 % (0-4); Hematocrit 47.3 % (42.0-52.0); Hemoglobin 15.8 g/dl (14.0-18.0); Imm Gran Abs Auto 0.03 X10*3/uL (0.00-0.03); Imm Gran Pct Auto 0.4 % (0.0-0.4); Lymphocytes Absolute Auto 2.6 X10*3/uL (1.2-4.9); Lymphocytes Percent Auto 34.1 % (20-40); Mean Corpuscular HGB Conc 33.4 g/dl (31.0-36.0); Mean Corpuscular Hemoglobin 32.2 pg (27.0-33.0); Mean Corpuscular Volume 96.5 fL (80.0-98.0); Mean Platelet Volume 10.4 fL (9.4-12.4); Monocytes Absolute Auto 0.9 X10*3/uL (0.1-1.2); Monocytes Percent Auto 11.5 % (2-11); Neutrophils Absolute Auto 3.6 x10*3/uL (2.0-8.3); Neutrophils Percent Auto 47.8 % (45-73); Platelet Count 255 X10*3/uL (160-400); Red Cell Distribution Width 12.9 % (11.0-16.0); White Blood Count 7.5 X10*3/uL (4.8-10.8)
[2025-01-05 08:30] LABS: Alanine Aminotransferase 41 U/L (0-40); Alkaline Phosphatase 88 U/L (39-117); Anion Gap 11 (12-20); Aspartate Amino Transferase 32 U/L (5-37); Bilirubin Total 1.2 mg/dL (0.0-1.0); Blood Urea Nitrogen 18 mg/dL (9-16); Calcium 8.8 mg/dL (8.4-10.2); Carbon Dioxide 22 mmol/L (22-29); Chloride 109 mmol/L (96-108); Cholesterol 245 mg/dL (<200); Estimated Glomerular Filt Rate > 60; Glucose Fasting 115 mg/dL (60-99); HDL Cholesterol 43 mg/dL (>40); LDL Cholesterol Calculated 172 mg/dL (<100); Potassium 4.4 mmol/L (3.3-5.1); Sodium 138 mmol/L (135-145); Total Protein 7.2 g/dL (6.5-8.0); Triglycerides 151 mg/dL (<150)
[2025-01-11 15:03] LABS: Testosterone, Total 569 ng/dL (250-1100)
== END 2025-01-05 06:10 | disposition home or self-care (01) ==
LOC: HO.LAB 06:09
PROVIDERS: PCP Internal Medicine Medical Oncology; Visit Provider Internal Medicine Medical Oncology
DX: E66.9 Obesity, unspecified (principal); N40.0 Benign prostatic hyperplasia without lower urinary tract symptoms; N52.9 Male erectile dysfunction, unspecified
CPT/HCPCS: 36415; 80053; 80061; 84403; 85025

== ENCOUNTER 2025-07-24 08:09 | Outpatient (REF) | payer OTHER, SELFPAY ==
[2025-07-24 08:21] LABS: MANUAL DIFF FLAG NO
[2025-07-24 08:48] LABS: Hematocrit 44.9 % (42.0-52.0); Hemoglobin 15.6 g/dl (14.0-18.0); Imm Gran Abs Auto 0.02 X10*3/uL (0.00-0.03); Imm Gran Pct Auto 0.3 % (0.0-0.4); Lymphocytes Absolute Auto 2.6 X10*3/uL (1.2-4.9); Mean Corpuscular HGB Conc 34.7 g/dl (31.0-36.0); Mean Corpuscular Hemoglobin 32.8 pg (27.0-33.0); Mean Corpuscular Volume 94.3 fL (80.0-98.0); NRBC Abs Auto 0.000 X10*3/uL (0.0-0.012); NRBC Pct Auto 0.0 /100WBC (0.0-0.2); Platelet Count 249 X10*3/uL (160-400); Red Blood Count 4.76 X10*6/uL (4.60-5.80); White Blood Count 7.4 X10*3/uL (4.8-10.8)
[2025-07-24 09:20] LABS: Alanine Aminotransferase 41 U/L (0-40); Albumin Level 4.7 g/dL (3.5-5.0); Alkaline Phosphatase 81 U/L (39-117); Anion Gap 13 (12-20); Aspartate Amino Transferase 36 U/L (5-37); Blood Urea Nitrogen 18 mg/dL (9-16); Calcium 8.9 mg/dL (8.4-10.2); Carbon Dioxide 21 mmol/L (22-29); Chloride 110 mmol/L (96-108); Cholesterol 242 mg/dL (<200); Estimated Glomerular Filt Rate > 60; HDL Cholesterol 38 mg/dL (>40); Potassium 4.4 mmol/L (3.3-5.1); Sodium 140 mmol/L (135-145); Total Protein 7.4 g/dL (6.5-8.0); Triglycerides 200 mg/dL (<150)
[2025-07-24 09:40] LABS: Prostate Specific Antigen 0.72 ng/mL (<0.05-4.0)
== END 2025-07-24 08:10 | disposition home or self-care (01) ==
LOC: HO.LAB 08:09
PROVIDERS: PCP Internal Medicine Medical Oncology; Visit Provider Internal Medicine Medical Oncology
DX: Z12.5 Encounter for screening for malignant neoplasm of prostate (principal); N40.0 Benign prostatic hyperplasia without lower urinary tract symptoms; E66.9 Obesity, unspecified; N52.9 Male erectile dysfunction, unspecified
CPT/HCPCS: 36415; 80053; 80061; 84153; 85025